=== PATIENT | female | born 1950 | race Caucasian/White ===

== ENCOUNTER → 2021-06-06 | Day surgery (SDC) | payer MEDICARE, BC ==
[2021-06-01 13:29] LABS: BASOPHILS # (AUTO) 0.1 X10'3 (0-0.2); BASOPHILS % (AUTO) 1.4 % (0-1); EOSINOPHILS # (AUTO) 0.1 X10'3 (0-0.9); EOSINOPHILS % (AUTO) 2.4 % (0-6); LYMPHOCYTES # (AUTO) 1.5 X10'3 (1.1-4.8); LYMPHOCYTES % (AUTO) 25.4 % (21-51); MEAN CORPUSCULAR HEMOGLOBIN 30.7 PG (27.0-31.0); MEAN CORPUSCULAR HGB CONC 32.4 g/dL (33.0-36.5); MEAN CORPUSCULAR VOLUME 94.7 FL (78-98); MEAN PLATELET VOLUME 8.4 FL (7.4-10.4); MONOCYTES # (AUTO) 0.5 X10'3 (0-0.9); MONOCYTES % (AUTO) 8.5 % (2-12); NEUTROPHILS # (AUTO) 3.6 X10'3 (1.8-7.7); NEUTROPHILS % (AUTO) 62.3 % (42-75); PRE OP HEMATOCRIT 46.7 % (35.0-45.0); PRE OP HEMOGLOBIN 15.1 g/dL (12.0-16.0); PRE OP PLATELET COUNT 209 X10'3 (140-440); RED BLOOD COUNT 4.93 X10'6 (4.20-5.60); RED CELL DISTRIBUTION WIDTH 13.5 % (11.5-14.5)
[2021-06-01 13:45] LABS: ALBUMIN 3.6 G/DL (3.4-5.0); ALBUMIN/GLOBULIN RATIO 0.9 (1.1-1.5); ALKALINE PHOSPHATASE 132 IU/L (46-116); BLOOD UREA NITROGEN 21 MG/DL (7-18); BUN/CREATININE RATIO 15.3 (6.6-38.0); CALCIUM 8.5 MG/DL (8.5-10.1); CHLORIDE 110 MMOL/L (99-107); CREATININE 1.37 MG/DL (0.40-0.90); PRE OP ALT 25 U/L (30-65); PRE OP ANION GAP 11 (8-16); PRE OP AST 23 U/L (10-37); PRE OP BILIRUB, TOTAL 0.6 MG/DL (0.0-1.0); PRE OP GLUCOSE 84 MG/DL (70-104); PRE OP POTASSIUM 4.5 MMOL/L (3.4-5.1); PRE OP SODIUM 145 MMOL/L (135-145); TOTAL CARBON DIOXIDE 23.8 MMOL/L (24-32); TOTAL PROTEIN 7.5 G/DL (6.4-8.2); eGFR 38 ML/MIN
[~2021-06-06] VITALS: Ht 165.1 cm; Wt 135.4 kg
[2021-06-06] VITALS (14 sets, daily range): BP systolic 127–175; BP diastolic 64–97
[~2021-06-06] MED LIST: ASCO100T12 PO; BUPIVAcaine 0.5% inj/PF 30 ML ONE; BUPR300T86 PO; ERGO400C PO; LISI20TA28 PO; MULT-1085 PO; VITA-268 PO; ceFOXitin 2GM-NS 100mL ADDvant 100 ML IV ONE; dexamethasone sod phosphate 10mg/ml inj ONE; etomidate 2mg/ml inj. ONE; famotidine 20mg tablet PO ONE; fentaNYL/PF 50MCG/1 ML 2ML syringe IV PRN; fentaNYL/PF 50MCG/1 ML 2ML syringe ONE; glycopyrrolate 0.2mg/ml inj ONE; hydrALAZINE 20mg/ml inj. IV PRN; isoflurane 100ml inhalation liquid IH ONE; labetalol 20mg/4ml (5mg/ml) syringe IV ONE; labetalol 20mg/4ml (5mg/ml) syringe IV PRN; midazolam 1 mg/ML 2ml injection ONE; morphine 2 MG/ML inj. syringe IV PRN; morphine 4 MG/ML inj SYRINge IV PRN; neostigmine methylsulfate 1 MG/ML 10ml vial ONE; ondansetron/PF 4mg/2ml inj IV PRN; ondansetron/PF 4mg/2ml inj ONE; ringers solution, lacted 1,000 ML IV SCH; rocuronium 10mg/ml inj IV ONE
--- NOTE | 2021-06-06 12:23 | NUR ---
Received from OR via , accompanied by Anesthesiologist DR CHRISTIE and report given by Anesthesiolgist. PT PRESENTS WITH 20G LEFT FOREARM, ABD DRESSING DRY AND INTACT. VSS. Addendum: 06/06/21 at 1229 by Isaura Stafford RN, RN Amended: Links added.
--- NOTE | 2021-06-06 14:23 | NUR ---
DISCHARGE CRITERIA MET, DISCHARGE INSTRUCTIONS GIVEN, DEMONSTRATES VERBAL UNDERSTANDING. DISCHARGED HOME IN GOOD CONDITION. Addendum: 06/06/21 at 1429 by Isaura Stafford RN, RN Amended: Links added.
== END | disposition home or self-care (01) ==
LOC: PAS 05:31
PROVIDERS: ATTEND Surgery
DX: K80.12 Calculus of gallbladder with acute and chronic cholecystitis without obstruction (principal); Z20.822 Contact with and (suspected) exposure to COVID-19; G47.30 Sleep apnea, unspecified; I10 Essential (primary) hypertension; F32.9 Major depressive disorder, single episode, unspecified; F41.9 Anxiety disorder, unspecified; E66.01 Morbid (severe) obesity due to excess calories; Z68.42 Body mass index [BMI] 45.0-49.9, adult; Z79.899 Other long term (current) drug therapy; Z90.710 Acquired absence of both cervix and uterus; Z98.84 Bariatric surgery status; Z98.890 Other specified postprocedural states; Z87.442 Personal history of urinary calculi
CPT/HCPCS: 36415; 47562; 80053; 82948; 85025; 93005; J0694; J1100; J2250; J2270; J2405; J2710; J3010; J7120; U0003; U0005; 88304; A4215; A4618; A7000; J3490

== ENCOUNTER 2025-01-17 05:33 | Inpatient (IN) | payer MEDICARE, BC ==
[2025-01-14 11:05] LABS: BASOPHILS # (AUTO) 0.1 X10'3 (0-0.2); BASOPHILS % (AUTO) 1.2 % (0-1); EOSINOPHILS # (AUTO) 0.1 X10'3 (0-0.9); MEAN PLATELET VOLUME 9.2 FL (7.4-10.4); MONOCYTES # (AUTO) 0.3 X10'3 (0-0.9); PRE OP PLATELET COUNT 183 X10'3 (140-440); PRE OP WHITE BLOOD COUNT 4.4 10'3 (4.8-10.8)
[2025-01-14 11:09] LABS: ALBUMIN 3.5 G/DL (3.4-5.0); ALKALINE PHOSPHATASE 118 IU/L (46-116); BLOOD UREA NITROGEN 26 MG/DL (7-18); BUN/CREATININE RATIO 23.6 (10.0-20.0); CALCIUM 8.5 MG/DL (8.5-10.1); CHLORIDE 109 MMOL/L (99-107); EOSINOPHILS % (AUTO) 2.2 % (0-6); LYMPHOCYTES # (AUTO) 1.3 X10'3 (1.1-4.8); LYMPHOCYTES % (AUTO) 29.8 % (21-51); MEAN CORPUSCULAR HEMOGLOBIN 31.3 PG (27.0-31.0); MEAN CORPUSCULAR HGB CONC 32.9 g/dL (33.0-36.5); MEAN CORPUSCULAR VOLUME 95.3 FL (78-98); MONOCYTES % (AUTO) 6.9 % (2-12); NEUTROPHILS # (AUTO) 2.6 X10'3 (1.8-7.7); NEUTROPHILS % (AUTO) 59.9 % (42-75); PRE OP ALT 24 U/L (30-65); PRE OP ANION GAP 8 (8-16); PRE OP AST 25 U/L (10-37); PRE OP BILIRUB, TOTAL 0.8 MG/DL (0.0-1.0); PRE OP GLUCOSE 95 MG/DL (70-104); PRE OP HEMOGLOBIN 15.4 g/dL (12.0-16.0); PRE OP POTASSIUM 4.4 MMOL/L (3.4-5.1); PRE OP SODIUM 143 MMOL/L (135-145); RED BLOOD COUNT 4.93 X10'6 (4.20-5.60); TOTAL CARBON DIOXIDE 26.4 MMOL/L (24-32); eGFR 49 ML/MIN
[2025-01-17] VITALS (26 sets, daily range): BP systolic 98–154; BP diastolic 44–99; PULSE 44–79; RESP 12–18; TEMP 97.8–98.9; O2SAT 93–99
[~2025-01-17] VITALS: Ht 165.1 cm; Wt 110.0 kg
[~2025-01-17 05:33] MED LIST changes: -BUPIVAcaine 0.5% inj/PF 30 ML ONE; -BUPR300T86 PO; +CYAN-104 PO; -VITA-268 PO; +[UNRECOGNIZED DRUG - CODE] PO; -ceFOXitin 2GM-NS 100mL ADDvant 100 ML IV ONE; -dexamethasone sod phosphate 10mg/ml inj ONE; -etomidate 2mg/ml inj. ONE; -fentaNYL/PF 50MCG/1 ML 2ML syringe IV PRN; -fentaNYL/PF 50MCG/1 ML 2ML syringe ONE; -glycopyrrolate 0.2mg/ml inj ONE; -hydrALAZINE 20mg/ml inj. IV PRN; -isoflurane 100ml inhalation liquid IH ONE; -labetalol 20mg/4ml (5mg/ml) syringe IV ONE; -labetalol 20mg/4ml (5mg/ml) syringe IV PRN; -midazolam 1 mg/ML 2ml injection ONE; -morphine 2 MG/ML inj. syringe IV PRN; -morphine 4 MG/ML inj SYRINge IV PRN; -neostigmine methylsulfate 1 MG/ML 10ml vial ONE; -ondansetron/PF 4mg/2ml inj IV PRN; -ondansetron/PF 4mg/2ml inj ONE; -rocuronium 10mg/ml inj IV ONE
[2025-01-17] MEDS: ceFAZolin 2gm in dextrose, iso 50 ML IV ONE (06:00)
[2025-01-17] MEDS: vancomycin/NS 1 GM ADD-VANTAGE 250 ML IV ONE (06:19)
[2025-01-17] MEDS: ringers solution, lacted 1,000 ML IV SCH ×2 (06:19→08:05)
[2025-01-17] MEDS: tranexamic acid 650mg tablet PO ONE (06:20)
[2025-01-17] MEDS: famotidine 20mg tablet PO ONE (06:27)
[2025-01-17] MEDS ORDERED: ROPIVAcaine 0.5% (5mg/ml) 30ml vial ONE (06:49)
[2025-01-17] MEDS ORDERED: BUPIVAcaine/PF 5 mg/ml 10ml ONE (07:12)
[2025-01-17] MEDS ORDERED: tetracaine 1% (10mg/ml) pres. free inj. ONE ×2 (07:12→07:13)
[2025-01-17] MEDS ORDERED: MIDAZolam 1mg/ml 10ml vial ONE (07:16)
[2025-01-17] MEDS ORDERED: hydrALAZINE 20mg/ml inj. IV PRN (08:05)
[2025-01-17] MEDS ORDERED: enalaprilat 1.25mg/ml 2ml vial IV PRN (08:05)
[2025-01-17] MEDS ORDERED: morphine 4 MG/ML inj SYRINge IV PRN (08:05)
[2025-01-17] MEDS ORDERED: fentaNYL/PF 50MCG/1 ML 2ML syringe IV PRN ×2 (08:05)
[2025-01-17] MEDS ORDERED: morphine 2 MG/ML inj. syringe IV PRN (08:05)
[2025-01-17] MEDS ORDERED: ondansetron/PF 4mg/2ml inj IV PRN ×2 (08:05→09:45)
[2025-01-17] MEDS: BUPIVACAINE/MELOXICAM 14 ML VIAL IL ONE (08:11)
[2025-01-17] MEDS ORDERED: fentaNYL/PF 50MCG/1 ML 2ML syringe ONE (09:27)
[2025-01-17] MEDS ORDERED: naloxone 0.4 mg/ml inj IV PRN (09:45)
[2025-01-17] MEDS ORDERED: HYDROmorphone 1 mg/ml syringe IV PRN (09:45)
[2025-01-17] MEDS ORDERED: HYDROmorphone inj. 0.5 MG/0.5 ML DISP.SYRIN IV PRN (09:45)
[2025-01-17] MEDS ORDERED: bisacodyl 10mg suppository rectal RC PRN (09:45)
[2025-01-17] MEDS ORDERED: acetaminophen 325mg tablet PO PRN (09:45)
[2025-01-17] MEDS ORDERED: magnesium hydroxide 30ml (MOM) UD suspension PO PRN (09:45)
[2025-01-17] MEDS ORDERED: diphenhydrAMINE 25mg capsule PO PRN ×2 (09:45)
[2025-01-17] MEDS: acetaminophen 325mg tablet PO SCH (13:54)
[2025-01-17] MEDS: oxyCODONE IR 5mg (immed. release) tablet PO PRN (13:55)
[2025-01-17] MEDS: potassium cl 20mEq in 1/2 NS 1,000 ML IV SCH (13:56)
[2025-01-17] MEDS: ceFAZolin/D5W- 1GM premix 50 ML IV SCH (16:27)
[2025-01-17] MEDS: sennosides 8.6mg tablet PO SCH (19:57)
[2025-01-17] MEDS: vancomycin/NS 1 GM ADD-VANTAGE 250 ML IV SCH (19:58)
[2025-01-18] VITALS (9 sets, daily range): BP systolic 105–152; BP diastolic 44–75; PULSE 67–78; RESP 14–18; TEMP 97.8–99.9; O2SAT 93–98
[2025-01-18 05:56] LABS: BASOPHILS # (AUTO) 0.1 X10'3 (0-0.2); BASOPHILS % (AUTO) 1.1 % (0-1); EOSINOPHILS # (AUTO) 0.2 X10'3 (0-0.9); EOSINOPHILS % (AUTO) 2.5 % (0-6); HEMATOCRIT 36.4 % (35.0-45.0); HEMOGLOBIN 12.3 g/dl (12.0-16.0); LYMPHOCYTES # (AUTO) 0.8 X10'3 (1.1-4.8); LYMPHOCYTES % (AUTO) 10.3 % (21-51); MEAN CORPUSCULAR HEMOGLOBIN 31.8 PG (27.0-31.0); MEAN CORPUSCULAR HGB CONC 33.7 g/dL (33.0-36.5); MEAN CORPUSCULAR VOLUME 94.4 FL (78-98); MEAN PLATELET VOLUME 9.1 FL (7.4-10.4); MONOCYTES # (AUTO) 0.8 X10'3 (0-0.9); MONOCYTES % (AUTO) 10.3 % (2-12); NEUTROPHILS # (AUTO) 5.6 X10'3 (1.8-7.7); NEUTROPHILS % (AUTO) 75.8 % (42-75); PLATELET COUNT 131 X10'3 (140-440); RED BLOOD COUNT 3.86 X10'6 (4.20-5.60); RED CELL DISTRIBUTION WIDTH 12.7 % (11.5-14.5); WHITE BLOOD COUNT 7.4 X10'3 (4.5-11.0)
[2025-01-18 06:27] LABS: ANION GAP 6 (8-16); CHLORIDE 107 MMOL/L (99-107); SODIUM 137 MMOL/L (135-145); TOTAL CARBON DIOXIDE 24.4 MMOL/L (24-32)
[2025-01-18] MEDS ORDERED: non-formulary drug (Ascorbic Acid (Vitamin C) 1 TAB) PO SCH (08:00)
[2025-01-18] MEDS ORDERED: aspirin 325mg tablet PO SCH (08:30)
[2025-01-18] MEDS: aspirin 325mg tablet, delayed-release (Ecotrin) PO SCH (09:20)
[2025-01-18] MEDS: cholecalciferol (vitamin D3) 400 unit (10mcg) tablet PO SCH (09:21)
[2025-01-18] MEDS: lisinopril 20mg tablet PO SCH (09:21)
[2025-01-18] MEDS: multivitamins, therapeutics tablet PO SCH (09:21)
[2025-01-18] MEDS: cyanocobalamin 500mcg tablet PO SCH (09:23)
[2025-01-18] MEDS: celeCOXIB 100mg capsule PO SCH (20:41)
[2025-01-18] MEDS: oxyCODONE IR 5mg (immed. release) tablet PO PRN (20:42)
[2025-01-19 06:00] VITALS: BP 115/50; PULSE 73; RESP 16; TEMP 97.4; O2SAT 95
[2025-01-19 06:07] LABS: BASOPHILS % (AUTO) 0.5 % (0-1); EOSINOPHILS # (AUTO) 0.3 X10'3 (0-0.9); HEMATOCRIT 33.7 % (35.0-45.0); HEMOGLOBIN 11.3 g/dl (12.0-16.0); LYMPHOCYTES % (AUTO) 13.8 % (21-51); MEAN CORPUSCULAR HEMOGLOBIN 31.6 PG (27.0-31.0); MEAN CORPUSCULAR HGB CONC 33.4 g/dL (33.0-36.5); MEAN CORPUSCULAR VOLUME 94.6 FL (78-98); MEAN PLATELET VOLUME 9.2 FL (7.4-10.4); MONOCYTES # (AUTO) 0.8 X10'3 (0-0.9); MONOCYTES % (AUTO) 10.8 % (2-12); NEUTROPHILS # (AUTO) 5.2 X10'3 (1.8-7.7); NEUTROPHILS % (AUTO) 70.9 % (42-75); PLATELET COUNT 122 X10'3 (140-440); RED BLOOD COUNT 3.56 X10'6 (4.20-5.60); RED CELL DISTRIBUTION WIDTH 12.9 % (11.5-14.5); WHITE BLOOD COUNT 7.4 X10'3 (4.5-11.0)
[2025-01-19 08:00] VITALS: RESP 18
[2025-01-19 10:00] VITALS: BP 109/47; PULSE 76; RESP 16; TEMP 98; O2SAT 96
[2025-01-19] MEDS ORDERED: acetaminophen 325mg tablet PO PRN (18:20)
== END 2025-01-19 13:45 | disposition home or self-care (01) | DRG 470 ==
LOC: PAS IN 05:33 → ORTHO 4S 11:55
PROVIDERS: ADMIT Orthopaedic Surgery; ATTEND Orthopaedic Surgery
PROC: 8E0YXBZ Computer Assisted Procedure of Lower Extremity (ICD-10-PCS; 2025-01-17)
PROC: 3E0T3BZ Introduction of Anesthetic Agent into Peripheral Nerves and Plexi, Percutaneous Approach (ICD-10-PCS; 2025-01-17)
PROC: 8E0Y0CZ Robotic Assisted Procedure of Lower Extremity, Open Approach (ICD-10-PCS; 2025-01-17)
PROC: 0SRC0J9 Replacement of Right Knee Joint with Synthetic Substitute, Cemented, Open Approach (ICD-10-PCS; principal; 2025-01-17 07:11)
DX: M17.11 Unilateral primary osteoarthritis, right knee (principal); Z68.41 Body mass index [BMI] 40.0-44.9, adult; E66.01 Morbid (severe) obesity due to excess calories; I10 Essential (primary) hypertension; G47.33 Obstructive sleep apnea (adult) (pediatric)
CPT/HCPCS: 36415; 80051; 80053; 82948; 85025; 87081; 94760; 97110; 97116; 97161; 97530; A4215; A4618; A6449; A7000; C1713; C1776; C9088; G0378; J0665; J0690; J2250; J2795; J3010; J3370; J3480; J3490; J7120